=== PATIENT | female | born 1995 | race Caucasian/White ===

== ENCOUNTER 2018-10-13 11:40 | Emergency (ER) | payer MEDICAID ==
[~2018-10-13] VITALS: Ht 162.6 cm; Wt 97.7 kg
[~2018-10-13 11:40] MED LIST: IBUP100O27 PO; INHALER; LORA10TA60 PO; NOCURR
[2018-10-13] MEDS ORDERED: ALBUTEROL SULFATE 2.5 MG/0.5 ML NEB SOLUTION NEB ONE (12:15)
[2018-10-13] MEDS ORDERED: BECL10.6 IH (12:20)
[2018-10-13] MEDS ORDERED: LEVALBUTEROL HCL 1.25 MG/0.5 ML NEB SOLUTION NEB ONE (15:41)
[2018-10-13] MEDS ORDERED: IPRATROPIUM BROMIDE 0.5 MG/2.5 ML NEB SOLUTION NEB ONE (15:45)
[2018-10-13] MEDS ORDERED: DEXAMETHASONE SOD PHOS 4 MG/ML 5 ML VIAL IM ONE (15:45)
[2018-10-13 19:41] VITALS: BP 141/84
== END 2018-10-13 19:49 | disposition home or self-care (01) ==
LOC: EMS 11:41
DX: J45.909 Unspecified asthma, uncomplicated (principal); F17.210 Nicotine dependence, cigarettes, uncomplicated; Z88.6 Allergy status to analgesic agent; Z79.899 Other long term (current) drug therapy
CPT/HCPCS: 71045; 84703; 94640; 94644; 96372; 99285; J1100

== ENCOUNTER 2019-08-21 17:41 | Emergency (ER) | payer MEDICAID ==
[~2019-08-21 17:41] MED LIST changes: +BECL10.6 IH; -IBUP100O27 PO; -INHALER; -LORA10TA60 PO; -NOCURR
== END 2019-08-21 17:59 | disposition left against medical advice (07) ==
LOC: EMS 17:41
DX: Z53.21 Procedure and treatment not carried out due to patient leaving prior to being seen by health care provider (principal)